=== PATIENT | male | born 1955 | race Caucasian/White ===

== ENCOUNTER 2018-05-18 07:27 | Observation (INO) | payer BC ==
--- NOTE | 2018-05-18 07:34 | EDPHY ---
H & P Stated Complaint: r sided abd pain x 3 days Time Seen by Provider: 05/18/18 07:34 - Personal History Current Tetanus Diphtheria and Acellular Pertussis (TDAP): Yes - Medical/Surgical History Hx Asthma: No Hx Chronic Respiratory Disease: No Hx Diabetes: No Hx Cardiac Disease: No Hx Renal Disease: No Hx Cirrhosis: No Hx Alcoholism: No Hx HIV/AIDS: No Hx Splenectomy or Spleen Trauma: No Other PMH: denies - Social History Smoking Status: Never smoked Constitutional: Initial Vital Signs Temperature (C) 37.2 C 05/18/18 07:30 Heart Rate 60 05/18/18 07:30 Respiratory Rate 18 05/18/18 07:30 Blood Pressure 130/76 H 05/18/18 07:30 O2 Sat (%) 95 05/18/18 07:30 O2 Delivery Mode Room Air Allergies/Adverse Reactions: anesthesia Allergy (Uncoded 05/18/18 07:28) Home Medications: Medication Instructions Recorded Aspir 81 09/10/13 Medical Decision Making - Diagnostics Imaging Results: Imaging Impressions Abdomen CT 05/18/18 07:41 Impression: 1. Acute appendicitis with moderate periappendiceal fluid, which could be related to early rupture, without abscess. 2. Nonobstructing left nephrolithiasis. 3. Additional findings as above. Findings discussed with Ramin Garcia MD, 05/18/2018 at 8:30. Imaging: Discussed imaging studies w/ call or contact centre team leader Radiologist, I viewed and interpreted images myself ED Course/Re-evaluation: CHIEF COMPLAINT: Right-sided abdominal pain HISTORY OF PRESENT ILLNESS: The patient is a 63 y/o male complaining of right-sided abdominal pain, onset 3 days ago. Several days ago he had a generalized stomach ache. He denies pain at this time, but thought he might have food poisoning. Yesterday the abdominal ache migrated to the right and progressed more into a pain. The pain exacerbated when he pressed down on his abdomen. Due to this pain, he also had a decreased appetite. When he woke up this morning the pain had increased. He also noticed a smaller and more constipated bowel movement, which is abnormal for him. Due to these symptoms he decided to present to the emergency department. He denies prior history of abdominal surgery. He denies pulmonary or cardiac disease. No chest pain, shortness of breath, nausea, vomiting, urinary complaints, numbness, paresthesias, fevers. REVIEW OF SYSTEMS: A comprehensive 10 system review of systems is otherwise negative aside from elements mentioned in the history of present illness and medical decision making. PHYSICAL EXAM: HR, BP, O2 Sat, RR. Temp noted General Appearance: Alert, well hydrated, appropriate, and non-toxic appearing. Head: Atraumatic without scalp tenderness or obvious injury Eyes: Pupils equal, round, reactive to light and accommodation, EOMI, no trauma , no injection. Ears: Clear bilaterally, no perforation, normal landmarks Nose: Atraumatic, no rhinorrhea, clear. Throat: There is no erythema or exudates, no lesions, normal tonsils, mucus membranes moist. Neck: Supple, nontender, no lymphadenopathy. Respiratory: No retractions, no distress, no wheezes, and no accessory muscle use. Lungs are clear to auscultation bilaterally. Cardiovascular: Regular rate and rhythm, no murmurs, rubs, or gallops. Bilateral carotid, radial, dorsalis pedis, and posterior tibial pulses intact. Good capillary refill all extremities. Gastrointestinal: Right lower quadrant tenderness to palpation that is above McBurney's point. Abdomen is soft, non-distended, no masses, no rebound, no guarding, no peritoneal signs. Musculoskeletal: Normal active ROM of all extremities, atraumatic. Neurological: Alert, appropriate, and interactive. The patient has normal DTRs and non-focal cranial nerves, motor, sensory, and cerebellar exam. Skin: No rashes, good turgor, no nodules on palpation. Past medical history: Denies Past surgical history: Denies Family history: Denies Social history: Lives in [place], employed at the [employer], DIAGNOSTICS/PROCEDURES/CRITICAL CARE TIME: Abdominopelvic CT: Retrocecal appendicitis DIFFERENTIAL DIAGNOSIS: The differential diagnosis for the patient's abdominal pain included but was not limited to retrocecal appendicitis, diverticulitis, cholecystitis, hernias, testicular torsion, gastritis, and urinary tract infection. MEDICAL DECISION MAKING: The patient is a 63 y/o male presenting with right-sided abdominal pain, onset 3 days ago. On exam he has right lower quadrant tenderness to palpation that is above McBurney's point. He has also felt more constipated today. Due to the slow onset of symptoms and change in bowel movements, I suspect this patient has cecal diverticulitis or retrocecal appendicitis. Labs and abdominopelvic CT ordered; 1L IV NS administered. The patient is declining pain or anti-nausea medication at this time. 0820: I reviewed patient's labs which does not reveal an elevated WBC; chem8 still pending. 0837: I spoke with Dr. Peterson, radiologist, who reports the patient has retrocecal appendicitis. 0905: Reassessed patient and discussed laboratory and imaging findings. He is comfortable with plan for admission and appendectomy. 0910: I consulted with Dr. Randolph, general surgeon, regarding this patient. He agrees to consult on this patient. 1gm IV Ertapenem and additional 1L IV NS administered. - Data Points Laboratory Results: Laboratory Results 05/18/18 07:45 05/18/18 07:45 05/18/18 05/18/18 05/18/18 09:15 07:51 07:45 WBC RBC Hgb POC Hgb 14.3 gm/dL gm/dL (13.7-17.5) Hct POC Hct 42 % % (40-51) MCV MCH MCHC RDW Plt Count MPV Neut % (Auto) Lymph % (Auto) Stoddard % (Auto) Eos % (Auto) Baso % (Auto) Nucleat RBC Rel Count Absolute Neuts (auto) Absolute Lymphs (auto) Absolute Monos (auto) Absolute Eos (auto) Absolute Basos (auto) Absolute Nucleated RBC Immature Gran % Immature Gran # POC Sodium 142 mEq/L mEq/L (135-145) Sodium 141 mEq/L mEq/L (135-145) POC Potassium 3.5 mEq/L mEq/L (3.3-5.0) Potassium 3.8 mEq/L mEq/L (3.3-5.0) POC Chloride 104 mEq/L mEq/L (97-110) Chloride 104 mEq/L mEq/L (97-110) Carbon Dioxide 26 mEq/l mEq/l (22-31) Anion Gap 11 mEq/L mEq/L (8-16) POC BUN 18 mg/dL mg/dL (7-23) BUN 19 mg/dL mg/dL (7-23) Creatinine 0.9 mg/dL mg/dL (0.7-1.3) POC Creatinine 1.0 mg/dL mg/dL (0.7-1.3) Estimated GFR > 60 Glucose 102 mg/dL H mg/dL (70-100) POC Glucose 107 mg/dL H mg/dL (70-100) Calcium 9.1 mg/dL mg/dL (8.5-10.4) Total Bilirubin 1.9 mg/dL H mg/dL (0.1-1.4) Conjugated Bilirubin 0.2 mg/dL mg/dL (0.0-0.5) Unconjugated Bilirubin 1.7 mg/dL H mg/dL (0.0-1.1) AST 29 IU/L IU/L (17-59) ALT 40 IU/L IU/L (21-72) Alkaline Phosphatase 52 IU/L IU/L (38-126) Total Protein 6.8 g/dL g/dL (6.3-8.2) Albumin 3.8 g/dL g/dL (3.5-5.0) Lipase 28 IU/L IU/L (23-300) Urine Color Pending Urine Appearance Pending Urine pH Pending Ur Specific [place] Pending Urine Protein Pending Urine Ketones Pending Urine Blood Pending Urine Nitrate Pending Urine Bilirubin Pending Urine Urobilinogen Pending Ur Leukocyte Esterase Pending Urine RBC Pending Urine WBC Pending Ur Epithelial Cells Pending Urine Glucose Pending 05/18/18 07:45 WBC 6.80 10^3/uL 10^3/uL (3.80-9.50) RBC 4.98 10^6/uL 10^6/uL (4.40-6.38) Hgb 15.1 g/dL g/dL (13.7-17.5) POC Hgb Hct 41.8 % % (40.0-51.0) POC Hct MCV 83.9 fL fL (81.5-99.8) MCH 30.3 pg pg (27.9-34.1) MCHC 36.1 g/dL g/dL (32.4-36.7) RDW 13.0 % % (11.5-15.2) Plt Count 144 10^3/uL L 10^3/uL (150-400) MPV 10.1 fL fL (8.7-11.7) Neut % (Auto) 69.2 % % (39.3-74.2) Lymph % (Auto) 20.0 % % (15.0-45.0) Stoddard % (Auto) 9.3 % % (4.5-13.0) Eos % (Auto) 1.3 % % (0.6-7.6) Baso % (Auto) 0.1 % L % (0.3-1.7) Nucleat RBC Rel Count 0.0 % % (0.0-0.2) Absolute Neuts (auto) 4.70 10^3/uL 10^3/uL (1.70-6.50) Absolute Lymphs (auto) 1.36 10^3/uL 10^3/uL (1.00-3.00) Absolute Monos (auto) 0.63 10^3/uL 10^3/uL (0.30-0.80) Absolute Eos (auto) 0.09 10^3/uL 10^3/uL (0.03-0.40) Absolute Basos (auto) 0.01 10^3/uL L 10^3/uL (0.02-0.10) Absolute Nucleated RBC 0.00 10^3/uL 10^3/uL (0-0.01) Immature Gran % 0.1 % % (0.0-1.1) Immature Gran # 0.01 10^3/uL 10^3/uL (0.00-0.10) POC Sodium Sodium POC Potassium Potassium POC Chloride Chloride Carbon Dioxide Anion Gap POC BUN BUN Creatinine POC Creatinine Estimated GFR Glucose POC Glucose Calcium Total Bilirubin Conjugated Bilirubin Unconjugated Bilirubin AST ALT Alkaline Phosphatase Total Protein Albumin Lipase Urine Color Urine Appearance Urine pH Ur Specific Meldrim Urine Protein Urine Ketones Urine Blood Urine Nitrate Urine Bilirubin Urine Urobilinogen Ur Leukocyte Esterase Urine RBC Urine WBC Ur Epithelial Cells Urine Glucose Medications Given: Discontinued Medications Sodium Chloride (Ns) 1,000 mls @ 0 mls/hr IV EDNOW ONE; Wide Open PRN Reason: Protocol Stop: 05/18/18 07:41 Last Admin: 05/18/18 07:50 Dose: 1,000 mls Sodium Chloride (Ns) 1,000 mls @ 0 mls/hr IV EDNOW ONE; Wide Open PRN Reason: Protocol Stop: 05/18/18 09:15 Last Admin: 05/18/18 09:18 Dose: 1,000 mls Point of Care Test Results: Chemistry 05/18/18 07:51 POC Sodium 142 mEq/L mEq/L (135-145) POC Potassium 3.5 mEq/L mEq/L (3.3-5.0) POC Chloride 104 mEq/L mEq/L (97-110) POC BUN 18 mg/dL mg/dL (7-23) POC Creatinine 1.0 mg/dL mg/dL (0.7-1.3) POC Glucose 107 mg/dL H mg/dL (70-100) ISTAT H&H 05/18/18 07:51 POC Hgb 14.3 gm/dL gm/dL (13.7-17.5) POC Hct 42 % % (40-51) Departure - Departure Disposition: [facility] Inpatient Acute Clinical Impression: Retrocecal appendicitis Condition: Fair Referrals: Lalito Palacios DO [Primary Care Provider] - As per Instructions Report Scribed for: Ramin Garcia Report Scribed by: Casandra Farnsworth Date of Report: 05/18/18 Time of Report: 07:35
[2018-05-18] MEDS ORDERED: NS 1,000 ML IV ONE ×2 (07:40→09:14)
[2018-05-18] MEDS ORDERED: IOPAMIDOL (ISOVUE-300) 100 ML BTL ONE (07:54)
[2018-05-18 08:04] LABS: PLATELET COUNT 144 10^3/uL (150-400)
[2018-05-18] MEDS ORDERED: ERTAPENEM 1 GM in NS 100 ML IV ONE (09:11)
[2018-05-18] MEDS ORDERED: HYDROmorphONE/DILAUDID 1 MG/ML INJ IVP PRN ×2 (10:26→11:18)
[2018-05-18] MEDS ORDERED: ceFAZolin 1 GM/5 ML SYR ONE (10:39)
[2018-05-18] MEDS ORDERED: HEPARIN 5,000 UNIT/0.5 ML INJ ONE (10:39)
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
[2018-05-18] MEDS ORDERED: MIDAZOLAM 2 MG/2 ML VIAL IVP ONE (10:50)
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
[2018-05-18] MEDS ORDERED: fentaNYL 100 MCG/2 ML INJ ONE (10:55)
[2018-05-18] MEDS ORDERED: PROPOFOL 200 MG/20 ML VIAL ONE (10:55)
[2018-05-18] MEDS ORDERED: MIDAZOLAM 2 MG/2 ML VIAL ONE (10:56)
[2018-05-18] MEDS ORDERED: ROCURONIUM 50 MG/5 ML VIAL ONE (11:00)
[2018-05-18] MEDS ORDERED: LIDOCAINE 2% 2 ML INJ ONE (11:01)
[2018-05-18] MEDS ORDERED: GLYCOPYRROLATE 0.2 MG/1 ML VIAL ONE (11:01)
[2018-05-18] MEDS ORDERED: ONDANSETRON 4 MG/2 ML VIAL ONE (11:12)
[2018-05-18] MEDS ORDERED: DEXAMETHASONE 4 MG/ML VIAL ONE (11:12)
[2018-05-18] MEDS ORDERED: ONDANSETRON 4 MG/2 ML VIAL IVP PRN (11:18)
[2018-05-18] MEDS ORDERED: NALOXONE HCL 0.4 MG/ML INJ IVP PRN (11:18)
[2018-05-18] MEDS ORDERED: PROMETHAZINE HCL 25 MG/ML INJ IVP PRN (11:18)
[2018-05-18] MEDS ORDERED: fentaNYL 100 MCG/2 ML INJ IVP PRN (11:18)
--- NOTE | 2018-05-18 12:14 | POSTANESTH ---
Post Anesthetic Evaluation Cardiovascular Status: Similar to Pre-Op Cond Respiratory Status: Similar to Pre-op Cond. Level of Consciousness/Mental Status: Can Participate in Eval Pain Control: Adequate, Prn Tx Ordered Nausea/Vomiting Control: Adequate, Prn Tx Ordered Complications Possibly Related to Anesthesia: None Noted
--- NOTE | 2018-05-18 12:15 | POSTOPPROG ---
Post Op Note Date of Operation: 05/18/18 Surgeon: Wing Randolph Anesthesia: GET(General Endotracheal) Pre-op Diagnosis: acute appendicitis Post-op Diagnosis: acute unruptured appendicitis Indication: acute appendicitis Procedure: laparoscopic appendectomy Findings: acute unruptured appendicitis Inf/Abcess present in the surg proc area at time of surgery?: No EBL: Minimal Total fluids administered: 900cc Complications: none Specimen(s): appendix
--- NOTE | 2018-05-18 12:46 | GOP ---
DATE OF OPERATION: 05/18/2018 SURGEON: Wing Randolph MD ANESTHESIA: General endotracheal. PREOPERATIVE DIAGNOSIS: Acute appendicitis. POSTOPERATIVE DIAGNOSIS: Acute unruptured appendicitis. PROCEDURE PERFORMED: Laparoscopic appendectomy. FINDINGS: Acute unruptured appendicitis. SPECIMENS: Appendix. ESTIMATED BLOOD LOSS: Minimal. INDICATIONS: Acute appendicitis. DESCRIPTION OF PROCEDURE: The patient was placed on the operating room table in supine position. After induction of adequate general endotracheal anesthesia (he previously emptied his bladder), his abdomen was prepped and draped. A curvilinear incision was planned at the umbilicus. A transverse suprapubic incision was planned as well as left lower quadrant incision. Surgical time-out was carried out. It was agreed to by all members of the operative team. Incisions were made at the above-mentioned sites. Dissection was continued down to the anterior rectus sheath and was elevated between 2 Allis clamps. The midline fascia was incised at the infraumbilical site. Pursestring of #0 PDS was placed. An 11-12 mm disposable Luna trocar was positioned, and intraabdominal insufflation was carried out to 15 mmHg at high flow. The peritoneum was inspected. The appendix was seen in the right lower quadrant. A 5 mm port was placed in the left lower quadrant and in the suprapubic site. On inspection of the abdomen there was a small amount of fluid. This was aspirated, and it was serous not turbid fluid so it was discarded and not sent for a culture. The appendix was carefully grasped with an Allis clamp on its mesoappendix and elevated. Mesoappendix was divided with the Harmonic scalpel. Skeletonization of the appendix was carried out down to the level of the cecum. A 35 mm Endo-PIPPA stapler was used to transect the specimen with a cuff of cecum. Note there were no neoplastic changes appreciated. The appendix was placed in an EndoCatch bag and delivered via the umbilical port site. Pneumoperitoneum was re-established. Irrigation with heparin and Ancef- containing irrigant was carried out. Hemostasis was checked and found to be excellent. Ports were removed under direct vision. The umbilical pursestring was elevated at its midpoint laterally. A suture of #0 PDS was placed in an inverted simple manner and tied. The pursestring was now tied. The subcutaneous tissue was well inspected for other bleeding sites and none were identified. The skin was closed at all 3 skin incisions with interrupted inverted simple sutures of #4-0 Vicryl. Mastisol and Steri-Strips were positioned. Band-Aids were positioned. The patient was transferred to Recovery in a stable and satisfactory condition. FLUIDS ADMINISTERED: 900 cc. COMPLICATIONS: None. /[id number]/MODL MTDD
[2018-05-18] MEDS: ACETAMINOPHEN 500 MG TAB PO SCH ×2 (14:08→17:39)
[2018-05-18] MEDS: KETOROLAC 15 MG/1 ML SDV IVP SCH ×2 (14:09→17:39)
[2018-05-19] MEDS: KETOROLAC 15 MG/1 ML SDV IVP SCH ×2 (00:07→05:56)
[2018-05-19] MEDS: ACETAMINOPHEN 500 MG TAB PO SCH (00:54)
[2018-05-19 07:59] VITALS: BP 124/71
--- NOTE | 2018-05-19 09:11 | SOAPPROG ---
SOAP Progress Note Assessment/Plan: 05/19/18 09:08 POD#1 Assessment: doing quite well. Pain controlled, eating, passing gas, no complaints, VSS Plan: Home today Subjective: I'm doing well Objective: Vital Signs Temp Pulse Resp BP Pulse Ox 36.7 C 48 L 16 124/71 H 94 05/19/18 07:57 05/19/18 07:57 05/19/18 07:57 05/19/18 07:57 05/19/18 07:57 05/18/18 05/19/18 05/20/18 05:59 05:59 05:59 Intake Total 2550 Output Total 600 Balance 1950 - Time Spent With Patient Time Spent With Patient: 15 - Pending Discharge Pending Discharge Within 24 Hours: Yes Pending Discharge Date: 05/19/18 Pending Discharge Time: 11:00 Physical Exam - Physical Exam General Appearance: WD/WN, alert, no apparent distress Neck: full range of motion Respiratory: chest non-tender, lungs clear, normal breath sounds Cardiac/Chest: regular rate, rhythm Abdomen: normal bowel sounds, non-tender, soft Male Genitalia: deferred Rectal: deferred Back: Normal inspection Skin: normal color, warm/dry Neuro/Psych: no motor/sensory deficits, alert, normal mood/affect, oriented x 3 ICD10 Worksheet Patient Problems: Problems Problem Status Onset Retrocecal appendicitis Acute
--- NOTE | 2018-05-19 09:41 | GDS ---
DISCHARGE DIAGNOSIS: Acute appendicitis. DISPOSITION: Home. CONDITION: Good. SURGERY PERFORMED: Laparoscopic appendectomy. DIET RESTRICTIONS: None, though I have recommended that he avoid constipating foods, such as bananas, rice, applesauce, and cheese. Texture is unrestricted. He will take Tylenol 1000 mg every 8 hours. Will use Toradol 10 mg every 6 hours for 4 days. Use Dilaudid for breakthrough pain, up to 4 mg every 4. He will continue his omega-3 fatty acids and multivitamins. He will hold his aspirin until he has completed the above regimen. For 3 weeks he is to shower only, lift less than 10 pounds and keep the Steri-Strips in place. He is to take a multivitamin with 100% of the RDAs of zinc, copper and C on a daily basis for 3 weeks. He is to watch for signs of infection; superficial would be redness, warmth, tenderness and swelling; deep would be fevers, chills, abdominal pain, loss of appetite and general malaise. He will follow up with Dr. Abiodun Guerra' office in 2 weeks. He will call this coming week for a copy of his path report. HOSPITAL COURSE: The patient was admitted and taken to the operating room. He has had an uneventful course. He was dismissed today. /[id number]/MODL MTDD
--- NOTE | 2018-05-19 10:04 | ASDISCHSUM ---
Discharge Information Plan Status:Home with No Needs Medically Cleared to Leave:05/19/2018 Discharge Date:05/19/2018 09:40 AM CM D/C Disposition:Home, Routine, Self-Care ADT D/C Disposition:Home, Routine, Self-Care Projected Discharge Date:05/19/2018 09:40 AM Transportation at D/C: Discharge Delay Reason: Follow-Up Date:05/19/2018 09:40 AM Discharge Slot: Final Diagnosis: Placement Information Patient Contact Information Contact Name:AJYLIN Relationship: Address:[address] City:[place] Alternate Phone: [facility]/Zip Code:[place] [address] Email: Financial Information Financial Class:BCOP Primary Plan Desc:[employer]AN Primary Plan Number:[id number] Secondary Plan Desc: Secondary Plan Number: Assessment Information Intervention Information
== END 2018-05-19 09:40 | disposition home or self-care (01) ==
LOC: INTOOBSV 09:22 → F1N 13:16
PROVIDERS: ADMIT Surgery; ATTEND Surgery
PROC: 0DTJ4ZZ Resection of Appendix, Percutaneous Endoscopic Approach (ICD-10-PCS; principal; 2018-05-18 11:30)
DX: K35.80 Unspecified acute appendicitis (principal); E86.9 Volume depletion, unspecified
CPT/HCPCS: 44970; 74177; G0378; 82435-PO; 82565-PO; 82947-PO; 84132-PO; 84295-PO; 84520-PO; 85014-PO; J1100; J1335; J1644; J1885; J2250; J2405; J2704; J3010; Q9967